=== PATIENT | female | born 1930 | race Caucasian/White ===

== ENCOUNTER → 2017-04-14 10:06 | Outpatient (CLI) | payer MEDICARE ==
[~2017-04-14 10:06] MED LIST: BUMEX 1 MG TAB1 MG PO; KLOR-CON 1010 MEQ PO; PERCOCET 10/3251 TA1 PO; TIROSINT88 MCG PO; TOPAMAX100 MG PO
== END | disposition home or self-care (01) ==
LOC: D.CT 10:06
DX: R94.39 Abnormal result of other cardiovascular function study (principal)

== ENCOUNTER 2018-01-22 16:27 | Inpatient (IN) | payer MEDICARE ==
[~2018-01-22] VITALS: Ht 167.6 cm; Wt 149.1 kg
--- NOTE | ~2018-01-22 | OP ---
PATIENT NAME: NGUYEN HULL V MEDICAL RECORD: [id number] :30 LOCATION:[facility] D.2305 ADMISSION DATE:01/22/18 SURGEON: DONNA GONZALES MD DATE OF OPERATION: 01/28/2018 ANESTHESIA: BEN Valencia. SURGEON: Donna Gonzales MD Manager Style: None. PREOPERATIVE DIAGNOSIS: Right closed bimalleolar ankle fracture. POSTOPERATIVE DIAGNOSES: Right closed bimalleolar ankle fracture with comminution of both the medial and lateral malleoli including a medial osteochonrdral fragment at the lateral talo-fibular articulation (medium fragment). PROCEDURE PERFORMED: Open reduction internal fixation medial and lateral malleoli (bimalleolar ankle fracture) and pinning of the osteochondral fragment. ANTIBIOTICS: 1 gram Ancef. ESTIMATED BLOOD LOSS: Minimal. TOURNIQUET TIME: 95 minutes. FINDINGS: See the body of this report. COMPLICATIONS: None. Psthology: None. Implants: Paula lateral locking plate and screws as well as two Paula cannulated compression screws medially. Drains: None. Post op condition: Stable to the recovery room. Needle, sponge, and instrument counts correct. Indication for procedure: Obtain stable anatomic internal fixation and to permit mobilization NWB RLE to chair and if possible (although unlikely due to morbid obesity, poor proprioreception/balance, and weakness) mobilization with walker NWB RLE. Decrease chances of developing pneumonia, pressure ulcers, and DVT. OPERATIVE DETAIL: Mrs. Nguyen Hull is an 87-year-old female who presented to the Emergency Room after a fall with complaints of right ankle pain, swelling, deformity, and inability to ambulate. She was admitted at which time she was medically cleared and cardiology cleared and optimized for surgery today. Prior to proceeding to the operating room, I discussed with Ms. Hull and her daughter, the proposed procedure, its indications as well as the risks, benefits, alternatives, and complications associated with the procedure, in particular the importance of mobilizing the patient to prevent DVT, pulmonary complications, especially with her having pulmonary comorbidities and finally OPERATIVE REPORT [id number] NGUYEN HULL V also the possibility of decubitus ulcers. Their questions were answered. Informed consent was obtained and once medically cleared and optimized, we proceeded to the operating room today on 01/28/2018. DESCRIPTION OF PROCEDURE: The patient was brought to the operating room where general endotracheal anesthesia was provided. This was done after a block was placed. The block was popliteal block of the right lower extremity. The right lower extremity was then elevated, prepped and draped in the usual sterile fashion. An incision was first made along the lateral aspect of the lateral malleolus with the fracture site centered in the incision. Dissection was carried carefully through the subcutaneous tissues down to the fracture site. Periosteum was stripped a millimeter back from the fracture site which was an oblique spiral. Comminution was encountered along the proximal spike as well as the distal spike. There was an area where a jagged edge was visible and keyed in with the opposing fragment. The fracture site was opened with a laminar lumber sorter machine. Fracture callus and interposed soft tissue was carefully removed using a Levi tip suction. Copious irrigation of the lateral fracture and lateral aspect of the joint was also performed. The lateral talus was inspected for damage and none was visualized. A large medial fibula osteochondral fragment was identified and had no connections to soft tissue. This was reduced and pinned in place. The pin was bent along the fibula. The area was also assessed for small bony fragments and none were visualized. Copious irrigation of the joint was done to ensure that any possible comminuted fragments that may have fallen into the joint were removed. The oblique fracture was then reduced with the reduction clamp to its anatomic position which was checked by inspecting the jagged fragment that coincided with the opposing fragment. Fluoroscopic images were taken AP, lateral and motise. This revealed adequate reduction of the lateral malleolus. Two interfragmentary compression screws were placed in usual fashion, anterior to posterior, both achieving good purchase. At this point, the lateral locking plate was selected. It was a 5-hole plate. This was placed over the lateral malleolus in its appropriate position using a Sumas to check anteriorly and posteriorly to ensure that it was seated properly on the lateral malleolus. Care was taken during the posterior dissection of the distal fragment in order to avoid damage to the superior peroneal retinaculum. At this point, the distal aspect of the plate was affixed to the lateral malleolus using unicortical locking screws. Following this, 3 proximal screws were applied to the plate securing the fixation of the lateral malleolus. Copious irrigation was performed and then I nelson my attention to the medial side of the ankle. An incision was made along the medial aspect of the medial malleolus centering the fracture site which was palpable through the soft tissues. Dissection was carried down carefully to the fracture site and torn periosteum. The periosteum was peeled back approximately 1 mm from the fracture site, identifying anterior comminution, which was still attached to its soft tissue. This was lifted out of the fracture site and the joint was inspected. Small chondral defects were noted along the medial talar dome secondary to the fracture mechanism. These were not full thickness. The joint was inspected and the fracture site was gapped open. Using a Levi tip, soft tissues, periosteum and comminuted small bone fragments were removed. Copious irrigation of the joint ensured that no bony fragments had fallen into the medial side of the ankle joint. The deltoid ligament was inspected from the internal portion. This was the deep deltoid, it was intact. The posterior tibial tendon was also inspected and was not injured or torn. The fracture site was reduced anatomically using a central noriega point where a bony fragment edge OPERATIVE REPORT [id number] NGUYEN HULL V coincided with the opposing fracture fragment. Anatomic reduction was achieved using a dental pick. A K-wire was applied anteriorly to posteriorly at an oblique angle through the fracture site. Fluoroscopic imaging confirmed adequate reduction of both the medial and lateral malleoli with stable internal fixation of both malleoli. The superficial deltoid ligament was incised in line with proposed cannulated screw placement. Two K-wires were then inserted and checked with the fluoroscopic imaging in both the AP and lateral plane and were deemed to be in good position. Two cannulated screws were placed over the wires and the wires were removed. Final imaging revealed adequate stable internal fixation and adequate reduction. Copious irrigation was carried out followed by closure using skin as well as deep sutures in the subcutaneous tissue. Sterile dressing was applied followed by a short leg splint. The patient was then awakened and extubated and brought to recovery room in stable condition. TRANSINT:[id number] Voice Confirmation ID: [id number] DOCUMENT ID: [id number] DONNA GONZALES MD at 1003 CC: [id number] DICTATION DATE: 01/28/18 1228 DRAPERY AND UPHOLSTERY ESTIMATOR: 01/28/18 1337 ADM IN [facility] [address] [id number]
--- NOTE | ~2018-01-22 | OP ---
PATIENT NAME: ROSARIO WILSON V MEDICAL RECORD: [id number] :30 LOCATION:[facility] D.2305 ADMISSION DATE:01/22/18 SURGEON: SHIRA HENNESSY MD DATE OF OPERATION: 01/30/2018 PROCEDURE: Fiberoptic bronchoscopy. INDICATION: Ms. Wilson is an 87-year-old female who has acute respiratory failure, aspiration pneumonia as the patient vomited during the procedure. Fiberoptic bronchoscopy was carried out to clear any gastric secretion as well as to obtain specimen for culture and sensitivity. PROCEDURE IN DETAIL: The fiberoptic bronchoscope was easily passed through the ET tube. The ariel was sharp. The left main bronchus subsegment to the left upper lobe, left lower lobe within normal range. No copious secretion was seen. The right main bronchus was normal. The subsegment to the right upper lobe, right lower lobe, right middle lobe within normal range. There was some bronchitic changes, but there was no gastric secretion of blood in the bronchial tree. Specimen washing was obtained and sent for routine culture and sensitivity, AFB and fungus and cytology. Overall, the patient tolerated the procedure very well. TRANSINT:[id number] Voice Confirmation ID: [id number] DOCUMENT ID: [id number] SHIRA HENNESSY MD at 1410 CC: [id number] DICTATION DATE: 01/30/18 1127 RESTAURANT AND BAR MANAGER: 01/30/18 1152 DIS IN 02/08/[id number] [place] [address]
--- NOTE | ~2018-01-22 | EC ---
PATIENT:ROSARIO HULL V DATE OF SERVICE: 01/22/18 SEX: F MEDICAL RECORD: [id number] DATE OF : 30 LOCATION:[facility] D.230 AGE OF PATIENT: 87 ADMISSION DATE: 01/22/18 REFERRING PHYSICIAN: INTERPRETING PHYSICIAN: IRINA KEENE MD ECHOCARDIOGRAM REPORT ECHO CHARGES 4 ECHO COMPLETE DATE: CLINICAL DIAGNOSIS: ASSESS EF/ SURGERY OF BROKEN ANKLE CLEARENCE ECHOCARDIOGRAPHIC MEASUREMENTS (adult normal given) AC root (d.<3.7cm) 4.0 cm LV Septum d (<1.2 cm> 1.8 cm Valve Excursion 1.7 cm LV Septum (systole) 2.0 cm Left Atria (s.<4.0cm> 3.4 cm LVPW d(<1.2cm) 1.7 cm RV (d.<2.3cm) 4.8 cm LVPW (sytole) 1.9 cm LV diastole(<5.6CM) 4.3 cm MV E-F(>70mm/sec) cm LV systole 3.0 cm LVOT Diameter 1.9 cm MV exc.(>10mm) 1.0 cm Est.ejection fraction (50-75%) % DOPPLER: LVIT cm/sec A 77.0 cm/sec E 52.0 cm/sec LA cm/sec RVSP 56 mmHg LVOT 111 cm/sec AOP1/2T m/s Asc. Ao 180 cm/sec RVOT cm/sec RA cm/sec PA cm/sec AV Gradient Peak 12.98mmHg AV Mean 6.52 mmHg AV Area 1.8 cm MV Gradient Peak 6.45 mmHg MV Mean 1.52 mmHg MV Area cm COMMENTS: Package Dyeing Machine Operator: Dennis LINDSAY Corporate Development Intern: 1 Dr. Keene TAPE# PACS Pericardial Effusion N DATE OF SERVICE: 01/23/2018 FINDINGS: 1. Left ventricular chamber size is within normal limits. Left ventricular systolic function is normal. Overall ejection fraction is estimated at 55%. 2. Left atrium is within normal limits at 3.4 cm. Right atrium and right ventricular chamber sizes are mildly dilated. 3. Valvular structures have normal structure and motion. 4. Doppler interrogation reveals mild aortic insufficiency and mild tricuspid regurgitation. No other valvular insufficiency or stenosis, but pulmonary ECHOCARDIOGRAM REPORT [id number] ROSARIO HULL V systolic pressure is elevated, estimated at 56 mmHg. 5. No evidence of pericardial effusion or left ventricular thrombus. TRANSINT:[id number] Voice Confirmation ID: [id number] DOCUMENT ID: [id number] 01/28/2018 Edited to correct date of service, dmm. IRINA KEENE MD at 1140 CC: [id number] DICTATION DATE: 01/24/18 1220 MUSIC JOURNALIST: 01/24/18 1750 ADM IN [place] [id number] [place] [id number]
--- NOTE | ~2018-01-22 | OP ---
PATIENT NAME: ROSARIO WILSON V MEDICAL RECORD: [id number] :30 LOCATION:.[facility] D.2305 ADMISSION DATE:01/22/18 SURGEON: DONNA GONZALES MD DATE OF OPERATION: 01/29/2018 ANESTHESIA: Dr. Frias, general endotracheal. SURGEON: Donna Gonzales MD. COLOR PRINT INSPECTOR: None. PREOPERATIVE DIAGNOSIS: Long pin in the lateral malleolus requiring revision. POSTOPERATIVE DIAGNOSIS: Long pin in the lateral malleolus requiring revision. PROCEDURE PERFORMED: Revision of pin lateral malleolus; removal of hardware. ANTIBIOTICS: 2 grams Cefazol. BLOOD LOSS: Minimal. TOURNIQUET TIME: 5 minutes. FINDINGS: See body of the report. COMPLICATIONS: Included intraoperative emesis with a large volume including microaspiration based upon intraoperative bronchoscopy; possible GI bleed based upon the color and consistency of the emesis. PATHOLOGY: One pin. IMPLANTS: None. DRAINS: None. POSTOPERATIVE CONDITION: Guarded to the ICU, intubated with central venous access and consultation with field service tech, gastrointestinal specialist, and pharmacy informatics specialist. COUNTS: Needle, sponge, and instrument counts were correct. INDICATIONS FOR PROCEDURE: Removal of the long pin in the lateral malleolus. PROCEDURE IN DETAIL: Ms. Wilson is an 87-year-old female who underwent ORIF of a bimalleolar ankle fracture yesterday, which included the discovery of a fairly large osteochondral medial fragment from the anterior aspect and medial aspect of the lateral malleolus. The articular fragment was fixed with a transfixion pin that was bent and placed under the plate. Postoperatively, the patient was found to be too long and had backed out slightly towards the anterior aspect of the ankle. The patient was counseled that revision with removal of the pin would be recommended followed by assessment of the fracture stability and possible internal fixation with an interfragmentary compression screw. Risks, benefits, alternatives, and complications were discussed and informed consent was obtained. The patient was then taken to the operating room where the popliteal block and sedation was provided by anesthesia. Unfortunately as the OPERATIVE REPORT [id number] ROSARIO WILSON V tourniquet was inflated, the patient had some discomfort and some propofol was provided by anesthesia for short term sedation as the procedure would take only 5 minutes after which she began to vomit copious black and bilious material from her stomach. She was immediately placed on her lateral decubitus position and suction by anesthesia. Endotracheal tube was inserted as well as a nasogastric tube for evacuation of any remaining fluid. See the anesthesia notes for details of the fluid that was evacuated from the stomach with an NG tube. The scope was placed through the endotracheal tube and inspection of the trachea and ariel indicated then only micro aspiration may have happened despite this central venous access was placed by anesthesia as well as maintenance of general endotracheal tube and the NG tube. Arrangements were made for observation in the ICU and consultation with GI and pulmonary as well as an field service tech. The procedure took 5 minutes and closure was done using Prolene in a trauma suture stitch in order to quickly mobilize the patient and get her to a monitored setting following this procedure. Sterile dressing was placed as well as the splint. She will be nonweightbearing on the right lower extremity and will be monitored in the ICU until stable to be transferred to the floor under less close monitoring. At this point, the patient also had fluoroscopic imaging taken showing stable internal fixation and adequate alignment of all hardware in the joint. TRANSINT:[id number] Voice Confirmation ID: [id number] DOCUMENT ID: [id number] DONNA GONZALES MD at 0835 CC: [id number] DICTATION DATE: 01/30/18 1633 PATTERN CHART WRITER: 01/30/18 1659 ADM IN [facility] [address] [place] [address]
[2018-01-22] MEDS ORDERED: NEURONTIN 300300 MG PO (23:17)
[2018-01-22] MEDS ORDERED: CYMBALTA20 MG PO (23:18)
[2018-01-22] MEDS ORDERED: LASIX40 MG PO (23:19)
[2018-01-22] MEDS ORDERED: K-TAB10 MEQ PO (23:20)
[2018-01-22] MEDS ORDERED: ZOCOR20 MG PO (23:20)
[2018-01-22] MEDS ORDERED: SYNTHROID125 MCG PO (23:21)
[2018-01-22] MEDS ORDERED: ENDOCET 10-3251 TAB PO (23:23)
[2018-01-22] MEDS ORDERED: LIDODERM 5 %1 PATCH TRANSDERM (23:24)
[2018-01-22 23:26] VITALS: BP 155/77; BMI 42.7
[2018-01-23 00:32] VITALS: BP 155/77
[2018-01-23 04:00] VITALS: BP 116/79
[2018-01-23 05:27] LABS: APPEARANCE CLEAR (CLEAR); BILIRUBIN NEGATIVE (NEGATIVE); COLOR YELLOW (YELLOW); GLUCOSE NEGATIVE (NEGATIVE); KETONE NEGATIVE (NEGATIVE); NITRITE NEGATIVE (NEGATIVE); PROTEIN NEGATIVE (NEGATIVE); UROBILINOGEN NORMAL (NORMAL)
[2018-01-23 06:30] LABS: BASOPHILS 0.7 % (0-2); EOSINOPHILS 0.7 % (0-7); HEMATOCRIT 39.6 % (36.0-48.0); HEMOGLOBIN 10.6 g/dL (12-16); LYMPHOCYTES 12.1 % (15-50); MCH 23.5 pg (26.0-34.0); MCHC 26.8 g/dL (31.0-37.0); MCV 87.6 fL (80.0-100.0); MEAN PLATELET VOLUME 11.4 fL (7.4-10.4); MONOCYTES 9.8 % (2-11); NEUTROPHILS 75.7 % (40-80); PLATELET COUNT 273 10x3/uL (130-400); RBC 4.52 10x6/uL (4.00-5.40); RDW 17.9 % (11.5-14.5); WBC 12.3 10x3/uL (4.8-10.8)
[2018-01-23 06:45] LABS: ANION GAP 13.4 mmol/L (8-16); CALCIUM 8.5 mg/dL (8.5-10.1); CARBON DIOXIDE 30.4 mmol/L (21.0-32.0); CREATININE - SERUM 2.3 mg/dL (0.6-1.3); POTASSIUM - SERUM 5.8 mmol/L (3.5-5.1)
[2018-01-23 08:03] VITALS: BP 181/89
[2018-01-23 09:44] VITALS: BMI 42.6
[2018-01-23 10:14] VITALS: Ht 167.6 cm; Wt 149.1 kg
[2018-01-23 12:16] VITALS: BP 136/65
[2018-01-23 16:14] VITALS: BP 128/69
[2018-01-23 17:50] LABS: APPEARANCE CLEAR (CLEAR); BILIRUBIN NEGATIVE (NEGATIVE); COLOR YELLOW (YELLOW); GLUCOSE NEGATIVE (NEGATIVE); KETONE NEGATIVE (NEGATIVE); NITRITE NEGATIVE (NEGATIVE); PROTEIN NEGATIVE (NEGATIVE); SPECIFIC GRAVITY 1.015 (1.005-1.020); UROBILINOGEN NORMAL (NORMAL)
[2018-01-23 17:52] LABS: BACTERIA FEW /hpf (NONE SEEN); RED CELLS - URINE >50 /hpf (0-5); WHITE CELLS - URINE 0-5 /hpf (0-5)
[2018-01-23 20:00] VITALS: BP 126/79
[2018-01-24] VITALS: BP 124/56
[2018-01-24 04:00] VITALS: BP 136/72
[2018-01-24 05:23] LABS: BASOPHILS 0.3 % (0-2); EOSINOPHILS 1.1 % (0-7); HEMATOCRIT 35.4 % (36.0-48.0); HEMOGLOBIN 9.6 g/dL (12-16); IMMATURE GRANULOCYTES 0.5 % (0-5); LYMPHOCYTES 9.6 % (15-50); MCH 23.3 pg (26.0-34.0); MCHC 27.1 g/dL (31.0-37.0); MCV 85.9 fL (80.0-100.0); MEAN PLATELET VOLUME 10.4 fL (7.4-10.4); MONOCYTES 9.9 % (2-11); NEUTROPHILS 78.6 % (40-80); PLATELET COUNT 240 10x3/uL (130-400); RBC 4.12 10x6/uL (4.00-5.40); RDW 17.9 % (11.5-14.5); WBC 11.7 10x3/uL (4.8-10.8)
[2018-01-24 05:33] LABS: ANION GAP 10.5 mmol/L (8-16); CALCIUM 8.2 mg/dL (8.5-10.1); CARBON DIOXIDE 32.4 mmol/L (21.0-32.0); MAGNESIUM - SERUM 1.9 mg/dL (1.8-2.4); PHOSPHOROUS 3.9 mg/dL (2.5-4.9)
[2018-01-24 05:34] LABS: CREATININE - SERUM 1.6 mg/dL (0.6-1.3); POTASSIUM - SERUM 4.9 mmol/L (3.5-5.1)
[2018-01-24 08:06] VITALS: BP 109/42
[2018-01-24 12:12] VITALS: BP 127/57
[2018-01-24 16:27] VITALS: BP 115/53
[2018-01-24 20:00] VITALS: BP 109/55
[2018-01-25] VITALS: BP 109/36
[2018-01-25 06:00] VITALS: BP 140/71
[2018-01-25 06:16] LABS: BASOPHILS 0.2 % (0-2); EOSINOPHILS 0.7 % (0-7); HEMATOCRIT 33.4 % (36.0-48.0); HEMOGLOBIN 9.3 g/dL (12-16); IMMATURE GRANULOCYTES 0.5 % (0-5); LYMPHOCYTES 6.6 % (15-50); MCH 23.4 pg (26.0-34.0); MCHC 27.8 g/dL (31.0-37.0); MCV 84.1 fL (80.0-100.0); MEAN PLATELET VOLUME 10.4 fL (7.4-10.4); MONOCYTES 8.9 % (2-11); NEUTROPHILS 83.1 % (40-80); PLATELET COUNT 238 10x3/uL (130-400); RBC 3.97 10x6/uL (4.00-5.40); RDW 17.8 % (11.5-14.5); WBC 10.7 10x3/uL (4.8-10.8)
[2018-01-25 06:28] LABS: CALCIUM 8.4 mg/dL (8.5-10.1); CREATININE - SERUM 1.2 mg/dL (0.6-1.3)
[2018-01-25 08:45] VITALS: BP 150/76
[2018-01-25 13:11] VITALS: BP 128/65
[2018-01-25 16:44] VITALS: BP 153/78
[2018-01-25 20:00] VITALS: BP 133/49
[2018-01-26 06:19] LABS: BASOPHILS 0.2 % (0-2); EOSINOPHILS 1.8 % (0-7); HEMATOCRIT 33.2 % (36.0-48.0); HEMOGLOBIN 9.2 g/dL (12-16); IMMATURE GRANULOCYTES 0.4 % (0-5); LYMPHOCYTES 8.6 % (15-50); MCH 23.4 pg (26.0-34.0); MCHC 27.7 g/dL (31.0-37.0); MCV 84.3 fL (80.0-100.0); MEAN PLATELET VOLUME 10.1 fL (7.4-10.4); MONOCYTES 10.5 % (2-11); NEUTROPHILS 78.5 % (40-80); PLATELET COUNT 219 10x3/uL (130-400); RBC 3.94 10x6/uL (4.00-5.40); RDW 17.8 % (11.5-14.5); WBC 10.6 10x3/uL (4.8-10.8)
[2018-01-26 06:51] LABS: ANION GAP 8.1 mmol/L (8-16); CALCIUM 8.4 mg/dL (8.5-10.1); CARBON DIOXIDE 34.7 mmol/L (21.0-32.0); POTASSIUM - SERUM 3.8 mmol/L (3.5-5.1)
[2018-01-26 08:55] VITALS: BP 117/65
[2018-01-26 13:05] VITALS: BP 117/56
[2018-01-26 16:00] VITALS: BP 134/84
[2018-01-26 20:00] VITALS: BP 135/81
[2018-01-27] VITALS: BP 141/73
[2018-01-27 04:00] VITALS: BP 133/70
[2018-01-27 06:14] LABS: ANION GAP 7.9 mmol/L (8-16); BASOPHILS 0.4 % (0-2); CALCIUM 8.4 mg/dL (8.5-10.1); CARBON DIOXIDE 34.8 mmol/L (21.0-32.0); EOSINOPHILS 1.9 % (0-7); HEMATOCRIT 32.4 % (36.0-48.0); IMMATURE GRANULOCYTES 0.3 % (0-5); LYMPHOCYTES 10.3 % (15-50); MCH 23.5 pg (26.0-34.0); MCHC 27.8 g/dL (31.0-37.0); MCV 84.6 fL (80.0-100.0); MEAN PLATELET VOLUME 10.3 fL (7.4-10.4); MONOCYTES 10.9 % (2-11); NEUTROPHILS 76.2 % (40-80); PLATELET COUNT 241 10x3/uL (130-400); POTASSIUM - SERUM 3.7 mmol/L (3.5-5.1); RBC 3.83 10x6/uL (4.00-5.40); RDW 18.1 % (11.5-14.5); WBC 10.3 10x3/uL (4.8-10.8)
[2018-01-27 08:49] VITALS: BP 133/73
[2018-01-27 12:56] VITALS: BP 136/61
[2018-01-27 15:15] LABS: ERYTHROCYTE SEDIMENTATION RATE 70 mm/hr (0-42)
[2018-01-27 16:23] VITALS: BP 127/73
[2018-01-27 20:00] VITALS: BP 146/66
[2018-01-28] VITALS (7 sets, daily range): BP systolic 126–145; BP diastolic 63–77
[2018-01-28 06:31] LABS: BASOPHILS 0.3 % (0-2); EOSINOPHILS 2.2 % (0-7); HEMATOCRIT 32.6 % (36.0-48.0); HEMOGLOBIN 8.9 g/dL (12-16); IMMATURE GRANULOCYTES 0.4 % (0-5); LYMPHOCYTES 8.2 % (15-50); MCH 23.2 pg (26.0-34.0); MCHC 27.3 g/dL (31.0-37.0); MCV 85.1 fL (80.0-100.0); MEAN PLATELET VOLUME 10.5 fL (7.4-10.4); MONOCYTES 8.5 % (2-11); NEUTROPHILS 80.4 % (40-80); PLATELET COUNT 243 10x3/uL (130-400); RBC 3.83 10x6/uL (4.00-5.40); RDW 18.4 % (11.5-14.5); WBC 10.9 10x3/uL (4.8-10.8)
[2018-01-28 06:43] LABS: CALCIUM 8.5 mg/dL (8.5-10.1); CARBON DIOXIDE 36.7 mmol/L (21.0-32.0); POTASSIUM - SERUM 3.7 mmol/L (3.5-5.1)
[2018-01-28 14:45] LABS: BASOPHILS 0.3 % (0-2); EOSINOPHILS 0.1 % (0-7); HEMATOCRIT 33.4 % (36.0-48.0); HEMOGLOBIN 9.2 g/dL (12-16); IMMATURE GRANULOCYTES 0.3 % (0-5); LYMPHOCYTES 3.7 % (15-50); MCH 23.3 pg (26.0-34.0); MCHC 27.5 g/dL (31.0-37.0); MCV 84.6 fL (80.0-100.0); MEAN PLATELET VOLUME 10.6 fL (7.4-10.4); MONOCYTES 2.5 % (2-11); NEUTROPHILS 93.1 % (40-80); PLATELET COUNT 236 10x3/uL (130-400); RBC 3.95 10x6/uL (4.00-5.40); RDW 18.3 % (11.5-14.5); WBC 11.5 10x3/uL (4.8-10.8)
[2018-01-29] VITALS (41 sets, daily range): BP systolic 68–157; BP diastolic 42–95
[2018-01-29 11:07] LABS: BASOPHILS 0.1 % (0-2); EOSINOPHILS 0.1 % (0-7); HEMATOCRIT 29.3 % (36.0-48.0); HEMOGLOBIN 8.2 g/dL (12-16); IMMATURE GRANULOCYTES 0.3 % (0-5); LYMPHOCYTES 5.7 % (15-50); MCH 23.4 pg (26.0-34.0); MCV 83.5 fL (80.0-100.0); MONOCYTES 11.3 % (2-11); NEUTROPHILS 82.5 % (40-80); PLATELET COUNT 296 10x3/uL (130-400); RBC 3.51 10x6/uL (4.00-5.40); RDW 18.9 % (11.5-14.5); WBC 14.4 10x3/uL (4.8-10.8)
[2018-01-29 11:16] LABS: ALBUMIN 2.1 g/dL (3.4-5.0); ANION GAP 9.3 mmol/L (8-16); BILIRUBIN - TOTAL 1.1 mg/dL (0.2-1.3); CALCIUM 8.3 mg/dL (8.5-10.1); CARBON DIOXIDE 32.7 mmol/L (21.0-32.0); CREATININE - SERUM 0.8 mg/dL (0.6-1.3); PROTEIN - SERUM 6.1 g/dL (6.4-8.2)
[2018-01-29 20:02] LABS: HEMATOCRIT 33.2 % (36.0-48.0); HEMOGLOBIN 9.1 g/dL (12-16)
[2018-01-29 21:23] LABS: ALBUMIN 1.9 g/dL (3.4-5.0); APTT 20.3 SECONDS (22.8-39.4); CALCIUM 8.1 mg/dL (8.5-10.1); INR 1.14 (0.85-1.17); PROTIME 14.2 SECONDS (11.6-15.0)
[2018-01-30] VITALS (92 sets, daily range): BP systolic 79–137; BP diastolic 47–94
[2018-01-30 01:12] LABS: BASOPHILS 0.2 % (0-2); EOSINOPHILS 0.7 % (0-7); HEMATOCRIT 29.8 % (36.0-48.0); HEMOGLOBIN 8.4 g/dL (12-16); IMMATURE GRANULOCYTES 0.7 % (0-5); LYMPHOCYTES 3.4 % (15-50); MCH 23.5 pg (26.0-34.0); MCHC 28.2 g/dL (31.0-37.0); MCV 83.5 fL (80.0-100.0); MEAN PLATELET VOLUME 10.1 fL (7.4-10.4); MONOCYTES 3.8 % (2-11); NEUTROPHILS 91.2 % (40-80); PLATELET COUNT 249 10x3/uL (130-400); RBC 3.57 10x6/uL (4.00-5.40); RDW 18.7 % (11.5-14.5); WBC 23.5 10x3/uL (4.8-10.8)
[2018-01-30 05:16] LABS: HEMATOCRIT 29.3 % (36.0-48.0); HEMOGLOBIN 8.2 g/dL (12-16); MCH 23.4 pg (26.0-34.0); MCV 83.7 fL (80.0-100.0); MEAN PLATELET VOLUME 10.8 fL (7.4-10.4); PLATELET COUNT 292 10x3/uL (130-400); RDW 18.8 % (11.5-14.5); WBC 29.8 10x3/uL (4.8-10.8)
[2018-01-30 05:35] LABS: INR 1.28 (0.85-1.17); PROTIME 15.5 SECONDS (11.6-15.0)
[2018-01-30 05:48] LABS: NEUTROPHILS 30 % (40-80); PLATELET ESTIMATE NORMAL; PLATELET MORPHOLOGY NORMAL PLT MORPH
[2018-01-30 05:52] LABS: ALBUMIN 1.7 g/dL (3.4-5.0); ANION GAP 13.2 mmol/L (8-16); BILIRUBIN - TOTAL 1.5 mg/dL (0.2-1.3); CALCIUM 7.8 mg/dL (8.5-10.1); CARBON DIOXIDE 30.1 mmol/L (21.0-32.0); POTASSIUM - SERUM 4.3 mmol/L (3.5-5.1); PROTEIN - SERUM 5.4 g/dL (6.4-8.2); THYROID STIMULATING HORMONE 4.36 uIU/mL (0.36-3.74)
[2018-01-30 05:55] LABS: CREATININE - SERUM 1.4 mg/dL (0.6-1.3)
[2018-01-30 06:39] LABS: MAGNESIUM - SERUM 1.4 mg/dL (1.8-2.4); PHOSPHOROUS 2.7 mg/dL (2.5-4.9)
[2018-01-30 18:40] LABS: HEMATOCRIT 29.9 % (36.0-48.0); HEMOGLOBIN 8.9 g/dL (12-16)
[2018-01-31] VITALS (84 sets, daily range): BP systolic 27–147; BP diastolic 49–79
[2018-01-31 04:38] LABS: BASOPHILS 0.1 % (0-2); EOSINOPHILS 0 % (0-7); HEMATOCRIT 32.5 % (36.0-48.0); HEMOGLOBIN 9.7 g/dL (12-16); IMMATURE GRANULOCYTES 1.1 % (0-5); LYMPHOCYTES 1.5 % (15-50); MCH 24.9 pg (26.0-34.0); MCHC 29.8 g/dL (31.0-37.0); MCV 83.5 fL (80.0-100.0); MEAN PLATELET VOLUME 10.7 fL (7.4-10.4); MONOCYTES 3.4 % (2-11); NEUTROPHILS 93.9 % (40-80); PLATELET COUNT 247 10x3/uL (130-400); RBC 3.89 10x6/uL (4.00-5.40); RDW 17.6 % (11.5-14.5); WBC 29.3 10x3/uL (4.8-10.8)
[2018-01-31 05:05] LABS: ALBUMIN 1.7 g/dL (3.4-5.0); ANION GAP 11.1 mmol/L (8-16); BILIRUBIN - TOTAL 2.08 mg/dL (0.2-1.3); CALCIUM 8.1 mg/dL (8.5-10.1); CARBON DIOXIDE 28.6 mmol/L (21.0-32.0); CREATININE - SERUM 1.2 mg/dL (0.6-1.3); POTASSIUM - SERUM 3.7 mmol/L (3.5-5.1); PROTEIN - SERUM 5.8 g/dL (6.4-8.2)
[2018-01-31 18:57] LABS: HEMATOCRIT 31.3 % (36.0-48.0); HEMOGLOBIN 9.4 g/dL (12-16)
[2018-02-01] VITALS (92 sets, daily range): BP systolic 84–123; BP diastolic 49–74
[2018-02-01 04:46] LABS: BASOPHILS 0 % (0-2); EOSINOPHILS 0 % (0-7); HEMATOCRIT 30.5 % (36.0-48.0); IMMATURE GRANULOCYTES 0.5 % (0-5); LYMPHOCYTES 1.7 % (15-50); MCH 24.7 pg (26.0-34.0); MCHC 29.5 g/dL (31.0-37.0); MCV 83.6 fL (80.0-100.0); MEAN PLATELET VOLUME 11.1 fL (7.4-10.4); MONOCYTES 3.7 % (2-11); NEUTROPHILS 94.1 % (40-80); PLATELET COUNT 228 10x3/uL (130-400); RBC 3.65 10x6/uL (4.00-5.40); RDW 17.8 % (11.5-14.5); WBC 24.6 10x3/uL (4.8-10.8)
[2018-02-01 05:01] LABS: ALBUMIN 1.4 g/dL (3.4-5.0); ANION GAP 12.3 mmol/L (8-16); BILIRUBIN - TOTAL 1.1 mg/dL (0.2-1.3); CALCIUM 7.9 mg/dL (8.5-10.1); CARBON DIOXIDE 29.5 mmol/L (21.0-32.0); CREATININE - SERUM 1.1 mg/dL (0.6-1.3); POTASSIUM - SERUM 3.8 mmol/L (3.5-5.1); PROTEIN - SERUM 5.3 g/dL (6.4-8.2)
[2018-02-02] VITALS (40 sets, daily range): BP systolic 79–116; BP diastolic 43–69
[2018-02-02 04:49] LABS: BASOPHILS 0.1 % (0-2); EOSINOPHILS 0 % (0-7); HEMATOCRIT 31.1 % (36.0-48.0); HEMOGLOBIN 9.2 g/dL (12-16); IMMATURE GRANULOCYTES 0.9 % (0-5); LYMPHOCYTES 1.4 % (15-50); MCH 24.9 pg (26.0-34.0); MCHC 29.6 g/dL (31.0-37.0); MCV 84.1 fL (80.0-100.0); MEAN PLATELET VOLUME 11.3 fL (7.4-10.4); NEUTROPHILS 92.6 % (40-80); PLATELET COUNT 240 10x3/uL (130-400); RDW 18.3 % (11.5-14.5); WBC 29.5 10x3/uL (4.8-10.8)
[2018-02-02 04:57] LABS: ANION GAP 14.3 mmol/L (8-16); BILIRUBIN - TOTAL 1.39 mg/dL (0.2-1.3); CALCIUM 7.4 mg/dL (8.5-10.1); CARBON DIOXIDE 27.7 mmol/L (21.0-32.0); CREATININE - SERUM 1.2 mg/dL (0.6-1.3); MAGNESIUM - SERUM 1.7 mg/dL (1.8-2.4); PHOSPHOROUS 2.8 mg/dL (2.5-4.9); PROTEIN - SERUM 5.2 g/dL (6.4-8.2)
[2018-02-02 05:00] LABS: ALBUMIN 2.1 g/dL (3.4-5.0)
[2018-02-02 15:23] LABS: AFB SPECIMEN PROCESSING Concentration (())
[2018-02-03] VITALS (95 sets, daily range): BP systolic 83–128; BP diastolic 36–743
[2018-02-03 04:39] LABS: BASOPHILS 0.1 % (0-2); EOSINOPHILS 0 % (0-7); HEMATOCRIT 31.3 % (36.0-48.0); HEMOGLOBIN 9.3 g/dL (12-16); IMMATURE GRANULOCYTES 1.3 % (0-5); LYMPHOCYTES 2.8 % (15-50); MCH 24.9 pg (26.0-34.0); MCHC 29.7 g/dL (31.0-37.0); MCV 83.9 fL (80.0-100.0); MEAN PLATELET VOLUME 11.8 fL (7.4-10.4); NEUTROPHILS 91.8 % (40-80); PLATELET COUNT 255 10x3/uL (130-400); RBC 3.73 10x6/uL (4.00-5.40); RDW 18.4 % (11.5-14.5)
[2018-02-03 04:46] LABS: ALBUMIN 2.5 g/dL (3.4-5.0); ANION GAP 16.5 mmol/L (8-16); BILIRUBIN - TOTAL 1.6 mg/dL (0.2-1.3); CALCIUM 7.7 mg/dL (8.5-10.1); CARBON DIOXIDE 24.7 mmol/L (21.0-32.0); CREATININE - SERUM 1.5 mg/dL (0.6-1.3); MAGNESIUM - SERUM 2.2 mg/dL (1.8-2.4); PHOSPHOROUS 3.7 mg/dL (2.5-4.9); POTASSIUM - SERUM 4.2 mmol/L (3.5-5.1); PROTEIN - SERUM 5.4 g/dL (6.4-8.2)
[2018-02-03 11:18] LABS: FUNGUS STAIN Final report (())
[2018-02-04] VITALS (26 sets, daily range): BP systolic 88–104; BP diastolic 43–63
[2018-02-04 04:42] LABS: BASOPHILS 0.1 % (0-2); EOSINOPHILS 0 % (0-7); HEMATOCRIT 30.1 % (36.0-48.0); IMMATURE GRANULOCYTES 2.2 % (0-5); LYMPHOCYTES 4.3 % (15-50); MCH 24.8 pg (26.0-34.0); MCHC 29.9 g/dL (31.0-37.0); MCV 82.9 fL (80.0-100.0); MEAN PLATELET VOLUME 12.3 fL (7.4-10.4); MONOCYTES 2.4 % (2-11); PLATELET COUNT 225 10x3/uL (130-400); RBC 3.63 10x6/uL (4.00-5.40); RDW 18.3 % (11.5-14.5); WBC 24.7 10x3/uL (4.8-10.8)
[2018-02-04 05:12] LABS: ANION GAP 18.5 mmol/L (8-16); CALCIUM 7.9 mg/dL (8.5-10.1); CARBON DIOXIDE 23.2 mmol/L (21.0-32.0); CREATININE - SERUM 1.6 mg/dL (0.6-1.3); POTASSIUM - SERUM 3.7 mmol/L (3.5-5.1); VANCOMYCIN - RANDOM 22.8 ug/mL (10.0-20.0)
[2018-02-04 10:06] LABS: BASOPHILS 0.1 % (0-2); EOSINOPHILS 0 % (0-7); HEMATOCRIT 30.1 % (36.0-48.0); HEMOGLOBIN 9.2 g/dL (12-16); LYMPHOCYTES 2.2 % (15-50); MCH 25.3 pg (26.0-34.0); MCHC 30.6 g/dL (31.0-37.0); MCV 82.9 fL (80.0-100.0); MEAN PLATELET VOLUME 12.2 fL (7.4-10.4); MONOCYTES 5.8 % (2-11); NEUTROPHILS 89.9 % (40-80); PLATELET COUNT 221 10x3/uL (130-400); RBC 3.63 10x6/uL (4.00-5.40); RDW 18.4 % (11.5-14.5); WBC 24.8 10x3/uL (4.8-10.8)
[2018-02-05] VITALS (32 sets, daily range): BP systolic 84–112; BP diastolic 48–61
[2018-02-05 04:57] LABS: HEMATOCRIT 33.9 % (36.0-48.0); HEMOGLOBIN 10.3 g/dL (12-16); MCH 25.2 pg (26.0-34.0); MCHC 30.4 g/dL (31.0-37.0); MCV 82.9 fL (80.0-100.0); MEAN PLATELET VOLUME 12.5 fL (7.4-10.4); PLATELET COUNT 248 10x3/uL (130-400); RBC 4.09 10x6/uL (4.00-5.40); RDW 17.9 % (11.5-14.5); WBC 23.7 10x3/uL (4.8-10.8)
[2018-02-05 05:22] LABS: ALBUMIN 2.9 g/dL (3.4-5.0); ANION GAP 22.3 mmol/L (8-16); BILIRUBIN - TOTAL 1.9 mg/dL (0.2-1.3); CALCIUM 7.7 mg/dL (8.5-10.1); CARBON DIOXIDE 20.8 mmol/L (21.0-32.0); CREATININE - SERUM 1.8 mg/dL (0.6-1.3); MAGNESIUM - SERUM 2.4 mg/dL (1.8-2.4); PHOSPHOROUS 5.8 mg/dL (2.5-4.9); POTASSIUM - SERUM 4.1 mmol/L (3.5-5.1); PROTEIN - SERUM 5.9 g/dL (6.4-8.2); VANCOMYCIN - RANDOM 17.7 ug/mL (10.0-20.0)
[2018-02-05 05:46] LABS: LYMPHOCYTES 7 % (15-50); MONOCYTES 5 % (2-11); NEUTROPHILS 84 % (40-80); PLATELET ESTIMATE NORMAL
[2018-02-06] VITALS (24 sets, daily range): BP systolic 85–113; BP diastolic 47–67
[2018-02-06 04:14] LABS: BASOPHILS 0 % (0-2); EOSINOPHILS 0 % (0-7); HEMATOCRIT 32.8 % (36.0-48.0); HEMOGLOBIN 9.8 g/dL (12-16); IMMATURE GRANULOCYTES 1.8 % (0-5); LYMPHOCYTES 4.3 % (15-50); MCHC 29.9 g/dL (31.0-37.0); MCV 83.7 fL (80.0-100.0); MEAN PLATELET VOLUME 12.6 fL (7.4-10.4); MONOCYTES 1.2 % (2-11); NEUTROPHILS 92.7 % (40-80); PLATELET COUNT 225 10x3/uL (130-400); RBC 3.92 10x6/uL (4.00-5.40); RDW 18.3 % (11.5-14.5); WBC 22.2 10x3/uL (4.8-10.8)
[2018-02-06 04:35] LABS: ANION GAP 18.6 mmol/L (8-16); CARBON DIOXIDE 23.8 mmol/L (21.0-32.0); CREATININE - SERUM 2.1 mg/dL (0.6-1.3); MAGNESIUM - SERUM 2.5 mg/dL (1.8-2.4); POTASSIUM - SERUM 4.4 mmol/L (3.5-5.1)
[2018-02-07] VITALS (43 sets, daily range): BP systolic 83–110; BP diastolic 44–63
[2018-02-07 05:40] LABS: BASOPHILS 0.1 % (0-2); EOSINOPHILS 0 % (0-7); HEMOGLOBIN 9.7 g/dL (12-16); IMMATURE GRANULOCYTES 2.4 % (0-5); LYMPHOCYTES 2.5 % (15-50); MCHC 30.3 g/dL (31.0-37.0); MCV 82.5 fL (80.0-100.0); MONOCYTES 3.1 % (2-11); NEUTROPHILS 91.9 % (40-80); PLATELET COUNT 213 10x3/uL (130-400); RBC 3.88 10x6/uL (4.00-5.40); RDW 18.4 % (11.5-14.5); WBC 35.2 10x3/uL (4.8-10.8)
[2018-02-07 06:04] LABS: ANION GAP 22.5 mmol/L (8-16); BILIRUBIN - TOTAL 1.96 mg/dL (0.2-1.3); CALCIUM 7.3 mg/dL (8.5-10.1); CARBON DIOXIDE 20.3 mmol/L (21.0-32.0); CREATININE - SERUM 2.3 mg/dL (0.6-1.3); MAGNESIUM - SERUM 2.7 mg/dL (1.8-2.4); PHOSPHOROUS 7.2 mg/dL (2.5-4.9); POTASSIUM - SERUM 4.8 mmol/L (3.5-5.1); PROTEIN - SERUM 5.5 g/dL (6.4-8.2)
[2018-02-08] VITALS (76 sets, daily range): BP systolic 76–107; BP diastolic 33–638
[2018-02-08 05:52] LABS: HEMOGLOBIN 10.2 g/dL (12-16); LYMPHOCYTES 1.6 % (15-50); MCHC 31.9 g/dL (31.0-37.0); MCV 81.4 fL (80.0-100.0); MEAN PLATELET VOLUME 12.5 fL (7.4-10.4); PLATELET COUNT 188 10x3/uL (130-400); RBC 3.93 10x6/uL (4.00-5.40); RDW 19.7 % (11.5-14.5); WBC 46.5 10x3/uL (4.8-10.8)
[2018-02-08 06:10] LABS: ALBUMIN 3.1 g/dL (3.4-5.0); BILIRUBIN - TOTAL 2.2 mg/dL (0.2-1.3); CARBON DIOXIDE 20.6 mmol/L (21.0-32.0); CREATININE - SERUM 2.5 mg/dL (0.6-1.3); MAGNESIUM - SERUM 2.5 mg/dL (1.8-2.4); PHOSPHOROUS 7.5 mg/dL (2.5-4.9); PROTEIN - SERUM 5.5 g/dL (6.4-8.2)
[2018-02-08 06:12] LABS: POTASSIUM - SERUM 5.6 mmol/L (3.5-5.1)
[2018-03-01 15:23] LABS: FUNGUS CULTURE RESULT 1 Candida glabrata (()); FUNGUS MYCOLOGY CULTURE Final report (())
[2018-03-29 18:09] LABS: ACID FAST CULTURE Negative (()); ACID FAST SMEAR Negative (())
== END 2018-02-08 23:17 | DRG 492 ==
LOC: D.ER 16:27 → D.MS 19:44 → D.EDHOLD 19:44 → OBSVTIME 19:44 → D.EDHOLD 19:44 → D.MS 20:03 → D.ICU 21:37
PROVIDERS: Family Medicine Adult Medicine; Internal Medicine Gastroenterology; Internal Medicine Nephrology; Internal Medicine Pulmonary Disease; Orthopaedic Surgery Foot and Ankle Surgery
PROC: 0QSG04Z Reposition Right Tibia with Internal Fixation Device, Open Approach (ICD-10-PCS; 2018-01-28)
PROC: 0QSJ04Z Reposition Right Fibula with Internal Fixation Device, Open Approach (ICD-10-PCS; principal; 2018-01-28 08:00)
PROC: 0QPJ04Z Removal of Internal Fixation Device from Right Fibula, Open Approach (ICD-10-PCS; 2018-01-29)
PROC: 0BH17EZ Insertion of Endotracheal Airway into Trachea, Via Natural or Artificial Opening (ICD-10-PCS; 2018-01-29)
PROC: 5A1955Z Respiratory Ventilation, Greater than 96 Consecutive Hours (ICD-10-PCS; 2018-01-29)
PROC: 0DD78ZX Extraction of Stomach, Pylorus, Via Natural or Artificial Opening Endoscopic, Diagnostic (ICD-10-PCS; 2018-01-29)
PROC: 0B978ZZ Drainage of Left Main Bronchus, Via Natural or Artificial Opening Endoscopic (ICD-10-PCS; 2018-01-30)
PROC: 0B938ZZ Drainage of Right Main Bronchus, Via Natural or Artificial Opening Endoscopic (ICD-10-PCS; 2018-01-30)
DX: S82.841A Displaced bimalleolar fracture of right lower leg, initial encounter for closed fracture (principal); J96.21 Acute and chronic respiratory failure with hypoxia; J96.22 Acute and chronic respiratory failure with hypercapnia; I50.33 Acute on chronic diastolic (congestive) heart failure; J69.0 Pneumonitis due to inhalation of food and vomit; A41.9 Sepsis, unspecified organism; R65.21 Severe sepsis with septic shock; K22.11 Ulcer of esophagus with bleeding; K22.6 Gastro-esophageal laceration-hemorrhage syndrome; E66.2 Morbid (severe) obesity with alveolar hypoventilation; Z68.42 Body mass index [BMI] 45.0-49.9, adult; I13.0 Hypertensive heart and chronic kidney disease with heart failure and stage 1 through stage 4 chronic kidney disease, or unspecified chronic kidney disease; N17.9 Acute kidney failure, unspecified; E87.2 Acidosis; J98.11 Atelectasis; D62 Acute posthemorrhagic anemia; K56.7 Ileus, unspecified; W01.0XXA Fall on same level from slipping, tripping and stumbling without subsequent striking against object, initial encounter; G47.33 Obstructive sleep apnea (adult) (pediatric); N18.9 Chronic kidney disease, unspecified; E87.5 Hyperkalemia; M20.11 Hallux valgus (acquired), right foot; S90.411A Abrasion, right great toe, initial encounter; I27.20 Pulmonary hypertension, unspecified; E83.42 Hypomagnesemia; I08.2 Rheumatic disorders of both aortic and tricuspid valves; I48.91 Unspecified atrial fibrillation; K44.9 Diaphragmatic hernia without obstruction or gangrene; E03.9 Hypothyroidism, unspecified; E78.5 Hyperlipidemia, unspecified; E11.9 Type 2 diabetes mellitus without complications